=== PATIENT | female | born 2000 | race Caucasian/White ===

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

== ENCOUNTER 2019-11-13 23:30 | Emergency (ER) | payer OTHER ==
[~2019-11-13] VITALS: Ht 160 cm; Wt 74.8 kg
[~2019-11-13 23:30] MED LIST changes: +DICY10CA53 PO; +METO10TA81 PO
--- NOTE | 2019-11-14 00:02 | PHYS DOC ---
Past History Past Medical History: No Pertinent History Past Surgical History: No Surgical History Smoking: Non-smoker Alcohol Use: None Drug Use: None Adult General Chief Complaint Chief Complaint: SORE THROAT HPI HPI 19-year-old female presents with globus feeling in the right side of her neck. She started had this feeling some time yesterday. It feels like it is Worse. She has gagged a couple times a day. He just feels like something is stuck inside the right side of her neck. She denies fever or chills. He has no other significant symptoms. She cannot think of anything that she would've eaten more congested that could've gotten stuck. The feeling started and she has not been eating. She has no other complaints at this time. Review of Systems Review of Systems Constitutional: Denies fever or chills [] Eyes: Denies change in visual acuity, redness, or eye pain [] HENT: Denies nasal congestion. Globus feeling [] Respiratory: Denies cough or shortness of breath [] Cardiovascular: No additional information not addressed in HPI [] GI: Denies abdominal pain, nausea, vomiting, bloody stools or diarrhea [] : Denies dysuria or hematuria [] Musculoskeletal: Denies back pain or joint pain [] Integument: Denies rash or skin lesions [] Neurologic: Denies headache, focal weakness or sensory changes [] Endocrine: Denies polyuria or polydipsia [] All other systems were reviewed and found to be within normal limits, except as documented in this note. Allergies Allergies Allergies Coded Allergies Type Severity Reaction Last Updated Verified No Known Drug Allergies 08/02/17 No Physical Exam Physical Exam Constitutional: Well developed, well nourished, no acute distress, non-toxic appearance. [] HENT: Normocephalic, atraumatic, bilateral external ears normal, oropharynx moist, no oral exudates, nose normal. [] Eyes: PERRLA, EOMI, conjunctiva normal, no discharge. [] Neck: Normal range of motion, no tenderness, supple, no stridor. Prominent, but not excessively large anterior cervical node on the right side.[] Cardiovascular:Heart rate regular rhythm, no murmur [] Lungs & Thorax: Bilateral breath sounds clear to auscultation [] Abdomen: Bowel sounds normal, soft, no tenderness, no masses, no pulsatile masses. [] Skin: Warm, dry, no erythema, no rash. [] Back: No tenderness, no CVA tenderness. [] Extremities: No tenderness, no cyanosis, no clubbing, ROM intact, no edema. [] Neurologic: Alert and oriented X 3, normal motor function, normal sensory function, no focal deficits noted. [] Psychologic: Affect normal, judgement normal, mood normal. [] EKG EKG [] Radiology/Procedures Radiology/Procedures [] Impressions: Exam: Soft tissue neck INDICATION: Globus feeling right side TECHNIQUE: Frontal and lateral views the neck Comparisons: None FINDINGS: Straightening of the cervical spine, may be positional. Vertebral body heights are well-maintained. No significant spondylotic change. Prevertebral soft tissues are unremarkable. Epiglottis and airway normal appearance. No radiopaque foreign body identified. Visual is lung apices are clear. IMPRESSION: Unremarkable neck regressed. Electronically signed by: Camilla Iqbal MD (11/14/2019 12:27 AM) [facility] DICTATED AND SIGNED BY: CAMILLA IQBAL MD DATE: 11/14/19 002 CC: CRUZ SKELTON DO; MOIRA NARANJO DO, MPH ~ Course & Med Decision Making Course & Med Decision Making Pertinent Labs and Imaging studies reviewed. (See chart for details) Patient's rapid strep is negative. Her soft tissue of the neck is also negative for radiopaque foreign body. The secondary evidence of her body. This is likely soft tissue swelling either due to enlarged lymph node, esophageal irritation or just inflammation from viral illness. It does not appear to be life-thr eatening. I have advised the patient to continue to monitor this for the next couple days to see if it improves. She will follow up with her PCP if needed. I will give her a GI cocktail prior to discharge to see if this is helpful. She is stable for discharge at this time. [] Dragon Disclaimer Dragon Disclaimer This electronic medical record was generated, in whole or in part, using a voice recognition dictation system. Departure Departure: Impression: Primary Impression: Globus sensation Disposition: 01 HOME, SELF-CARE Condition: STABLE Referrals: MOIRA NARANJO DO, [facility] (PCP) Patient Instructions: Globus Syndrome CRUZ SKELTON DO Nov 14, 2019 00:02
--- NOTE | 2019-11-14 00:30 | RAD ---
Exam: Soft tissue neck INDICATION: Globus feeling right side TECHNIQUE: Frontal and lateral views the neck Comparisons: None FINDINGS: Straightening of the cervical spine, may be positional. Vertebral body heights are well-maintained. No significant spondylotic change. Prevertebral soft tissues are unremarkable. Epiglottis and airway normal appearance. No radiopaque foreign body identified. Visual is lung apices are clear. IMPRESSION: Unremarkable neck regressed. Electronically signed by: Jeannie Spear MD (11/14/2019 12:27 AM) [id number]
[2019-11-14 00:49] VITALS: BP 115/70
[2019-11-14] MEDS ORDERED: LIDO:MAALOX 1:1 20 ML SINGLE DOSE. PO ONE (01:00)
== END 2019-11-14 00:50 | disposition home or self-care (01) ==
LOC: ER 23:30
DX: F45.8 Other somatoform disorders (principal)
CPT/HCPCS: 70360; 87070; 87880; 99285

== ENCOUNTER 2020-12-21 09:40 | Emergency (ER) | payer OTHER ==
[~2020-12-21] VITALS: Ht 167.6 cm; Wt 71.9 kg
[2020-12-21 11:13] LABS: BACTERIA,URINE MANY /HPF (0-FEW); BILIRUBIN,URINE NEG (NEG); CLARITY,URINE HAZY; COLOR,URINE YELLOW; GLUCOSE,URINE NEG (NEG); NITRITE,URINE NEG (NEG); RBC,URINE RARE /HPF (0-2); SQUAMOUS EPITHELIAL CELL,UR MANY /LPF; UROBILINOGEN,URINE 0.2 mg/dL (0.2 mg/dL)
--- NOTE | 2020-12-21 11:18 | PHYS DOC ---
Past History Past Medical History: GERD Past Surgical History: Tonsillectomy Smoking: Non-smoker Alcohol Use: None Drug Use: None Adult General Chief Complaint Chief Complaint: ABDOMINAL PAIN HPI HPI Patient is a previously healthy 20-year-old female who presents to the emergency room complaining of lower pelvic pain that radiates into her back. This is been ongoing for several months. She saw her CLINICAL MARKETING MANAGER for the symptoms and had an STD check for them in the fall. She declines wanting to be checked again. She states that she has not had any new partners since then and that her tests were negative. She states that they are sharp in nature when they come on and last for several hours. She had them all day yesterday and then was woken up with the same sharp pain this morning at 5 AM. She denies any vaginal bleeding or vaginal discharge. She has not had any vomiting, diarrhea, constipation. She does get reflux and nausea. Review of Systems Review of Systems Complete ROS is negative unless otherwise documented in HPI Allergies Allergies Allergies Coded Allergies Type Severity Reaction Last Updated Verified No Known Drug Allergies 08/02/17 No Physical Exam Physical Exam General: Awake, alert, NAD. Well Nourished, well hydrated. Cooperative HEENT: Atraumatic, EOMI, PERRL, airway patent, moist oral mucosa Neck: Supple, trachea midline Respiratory: CTA bilaterally, normal effort, no wheezing/crackles CV: RRR, no murmur, cap refill <2 GI: Soft, nondistended, nontender, no masses MSK: No obvious deformities Skin: Warm, dry, intact Neuro: A&O x3, speech NL, sensory and motor grossly intact, no focal deficits Psych: Normal affect, normal mood, not suicidal or homicidal Current Patient Data Vital Signs Vital Signs Date Time Temp Pulse Resp B/P (MAP) Pulse Ox O2 Delivery O2 Flow Rate FiO2 12/21/20 09:53 98.0 90 16 127/86 (100) 100 Room Air Lab Results Laboratory Tests Test 12/21/20 10:32 12/21/20 10:39 Urine Collection Type Unknown Urine Color Yellow Urine Clarity Hazy Urine pH 5.5 Urine Specific [place] 1.020 Urine Protein Neg (NEG-TRACE) Urine Glucose (UA) Neg mg/dL (NEG) Urine Ketones (Stick) Neg mg/dL (NEG) Urine Blood Trace (NEG) Urine Nitrite Neg (NEG) Urine Bilirubin Neg (NEG) Urine Urobilinogen Dipstick 0.2 mg/dL (0.2 mg/dL) Urine Leukocyte Esterase Small (NEG) Urine RBC Rare /HPF (0-2) Urine WBC 5-10 /HPF (0-4) Urine Squamous Epithelial Cells Many /LPF Urine Bacteria Many /HPF (0-FEW) POC Urine HCG, Qualitative hcg negative (Negative) EKG EKG [] Radiology/Procedures Radiology/Procedures [] Heart Score Risk Factors: Risk Factors: DM, Current or recent (<one month) smoker, HTN, HLP, family history of CAD, obesity. Risk Scores: Risk Factors: DM, Current or recent (<one month) smoker, HTN, HLP, family history of CAD, obesity. Course & Med Decision Making Course & Med Decision Making Pertinent Labs and Imaging studies reviewed. (See chart for details) Patient is a 20-year-old female who presents to the emergency room complaining of intermittent pelvic pain for several months. She was initially evaluated by her CLINICAL MARKETING MANAGER and had normal STD checking at that time. Did offer the patient repeat testing and a pelvic exam and at this time patient declines. Patient does not have any other significant GI symptoms. Ultrasound will be done to rule out mass or large ovarian cyst. Patient has a negative test. She is overall well-appearing. Ultrasound shows an ovarian cyst which may be causing some of her pain. She does also appear to have a UTI. Patient is also been having issues with reflux. We will put her on Nexium and Keflex. Patient's test results and vitals while in the ED were fully reviewed and discussed with the patient. Patient is stable and at this time does not need admission to the hospital. We have discussed strict return precautions and the importance of following up with their Primary Care Physician. Patient stated understanding and was given an opportunity to ask any questions. Patient is in agreement with plan. Dragon Disclaimer Dragon Disclaimer This electronic medical record was generated, in whole or in part, using a voice recognition dictation system. Departure Departure: Impression: Primary Impression: UTI (urinary tract infection) Additional Impression: Ovarian cyst Disposition: 01 DC HOME SELF CARE/HOMELESS Condition: STABLE Referrals: MOIRA NARANJO DO, [facility] (PCP) Patient Instructions: Ovarian Cyst Scripts Esomeprazole Magnesium (NEXIUM CAPSULE) 20 Mg Capsule.dr 1 CAP PO DAILY for GERD, #30 CAP 2 Refills Prov: JACE HERNÁNDEZ MD 12/21/20 Cephalexin (KEFLEX) 750 Mg Capsule 1 CAP PO BID for UTI for 7 Days, #14 CAP 0 Refills Prov: JACE HERNÁNDEZ MD 12/21/20 Problem Qualifiers JACE HERNÁNDEZ MD Dec 21, 2020 11:18
--- NOTE | 2020-12-21 11:30 | RAD ---
INDICATION: Reason: severe pelvic pain / Spl. Instructions: / History: COMPARISON: None. TECHNIQUE: Grayscale and color ultrasound images uterus and adnexa. Transabdominal and transvaginal images obtained. Transvaginal images were needed to better visualize structures that were limited on transabdominal imaging. FINDINGS: Uterus: 90 x 54 x 44 mm. 2 mm endometrial stripe Right Ovary: 20 x 18 x 11 mm. Left Ovary: 46 x 34 x 33 mm. Vascular flow identified to bilateral ovaries. Left ovarian cyst measuring 35 x 26 mm. IMPRESSION: * Vascular flow seen to the ovaries. * Left ovarian cyst. Electronically signed by: Wilson Hernandez MD (12/21/2020 11:28 AM) [id number]
[2020-12-21] MEDS ORDERED: CEPH750C9 PO (11:47)
[2020-12-21] MEDS ORDERED: ESOM20CA PO (11:47)
[2020-12-21 11:55] VITALS: BP 125/82
== END 2020-12-21 11:53 | disposition home or self-care (01) ==
LOC: ER 09:40
DX: N39.0 Urinary tract infection, site not specified (principal); N83.202 Unspecified ovarian cyst, left side; K21.9 Gastro-esophageal reflux disease without esophagitis
CPT/HCPCS: 36415; 76830; 76856; 81001; 81025; 87086; 87491; 87591; 99284